=== PATIENT | female | born 1965 | race Caucasian/White ===

== ENCOUNTER 2023-11-13 11:05 | Day surgery (SDC) | payer BC ==
[~2023-11-13] VITALS: Ht 162.6 cm; Wt 138.0 kg
[~2023-11-13 11:05] MED LIST: CARV12.549 PO; LEVO137T2 PO; OLME-11 PO
[2023-11-13 12:11] VITALS: BP 181/98; PULSE 91; RESP 16
[2023-11-13] MEDS ORDERED: diphenhydrAMINE 50 mg/ml inj ONE (12:38)
[2023-11-13] MEDS ORDERED: fentaNYL/PF 50MCG/1 ML 2ML syringe ONE (12:38)
[2023-11-13] MEDS ORDERED: MIDAZolam 1 MG/ML 5ML VIAL ONE (12:38)
[2023-11-13 13:05] VITALS: BP 128/73; PULSE 81; RESP 14; O2SAT 98
[2023-11-13 13:15] VITALS: BP 137/76; PULSE 76; RESP 16; O2SAT 98
[2023-11-13 13:25] VITALS: BP 131/99; PULSE 81; RESP 15; O2SAT 98
[2023-11-13 13:30] VITALS: BP 125/87; PULSE 77; RESP 14; O2SAT 98
== END 2023-11-13 13:50 | disposition home or self-care (01) ==
LOC: GI LAB 11:05
PROVIDERS: ATTEND Internal Medicine Gastroenterology
DX: Z12.11 Encounter for screening for malignant neoplasm of colon (principal); K57.30 Diverticulosis of large intestine without perforation or abscess without bleeding
CPT/HCPCS: 45378; 99152; J1200; J2250; J3010; J7030; Z7512; A4620